=== PATIENT | female | born 1955 | race Caucasian/White ===

== ENCOUNTER 2022-04-14 16:53 | Day surgery (SDC) | payer BC, SELFPAY ==
[2022-04-14 17:10] VITALS: BP 176/89; PULSE 99; RESP 16; TEMP 36.3; O2SAT 98
[2022-04-14 19:12] VITALS: BP 187/87; PULSE 97; RESP 18; O2SAT 99
[2022-04-14 19:44] VITALS: BP 159/83; PULSE 92; RESP 16; TEMP 36.7; O2SAT 93
--- NOTE | 2022-04-14 19:58 | CRLHL7_ITS ---
For Patients: As a result of the Century Cures Act, medical imaging exams and procedure reports are released immediately into your electronic medical record. You may view this report before your referring provider. If you have questions, please contact your health care provider. INDICATION: Right lower quadrant pain. TECHNIQUE: CT abdomen and pelvis acquired with 98 cc Isovue 370 IV contrast. COMPARISON: None. FINDINGS: Lower chest: Coronary artery and thoracic aorta atherosclerotic calcification. Liver: Unremarkable. Normal in size and attenuation. No suspicious masses. Gallbladder and bile ducts: Unremarkable. No stones or inflammation. No biliary dilatation. Pancreas: Fatty atrophy. No mass or inflammation. Spleen: Unremarkable. Normal in size. No masses. Adrenal glands: Unremarkable. No nodules. Kidneys: Two sub cm fat attenuating lesions in the superior pole of the left kidney may represent small angiomyolipomas. No suspicious masses, stones, or hydronephrosis. GI tract: Fluid-filled hyperemic appendix measuring up to 11 mm with mild periappendiceal inflammatory changes. No evidence for perforation or abscess formation. The remainder of the small and large bowel is unremarkable. Vasculature: Normal caliber abdominal aorta with mild to moderate atherosclerotic calcification. Mesenteric arteries are patent. Lymph nodes: No lymphadenopathy. Peritoneum/Abdominal Wall: Unremarkable. No sign of mass or infiltration. No free air or significant free fluid. Pelvis: Unremarkable. Bones: Unremarkable for age. IMPRESSION: Acute uncomplicated appendicitis in the right lower quadrant. Please note that all CT scans at this facility use dose modulation, iterative reconstruction, and/or weight-based dosing when appropriate to reduce radiation dose to as low as reasonably achievable. Dictated by Jeramy Luu MD @ 04/14/2022 9:49:04 PM (Electronically Signed)
--- NOTE | 2022-04-14 19:59 | ED.ABDPAIN ---
HPI - Abdominal Pain General Chief Complaint: Abdominal Pain Stated Complaint: R Side Abdominal Pain Time Seen by Provider: 04/14/22 19:21 History of Present Illness HPI narrative: This 67-year-old female comes in reporting abdominal pain that began this morning. She states that it is a constant pain that is been worsening through the day. Pain is distinctly worse with any kind of movement. She denies having any nausea, vomiting, fever, dysuria, or altered bowel function. Related Data Allergies Allergy/AdvReac Type Severity Reaction Status Date / Time bee venom protein (honey bee) Allergy Severe Anaphylaxis Verified 04/14/22 17:15 Review of Systems Status of ROS Reports: 10 or more systems reviewed and unremarkable except as noted in History and below Narrative Constitutional: No fevers, no weight gain or loss. Eyes: No discharge. No vision changes. HENT: No congestion, no sore throat, no ear pain. Cardiovascular: No chest pain, no palpitations. Respiratory: No shortness of breath, no wheezes, no cough. Gastrointestinal: No vomiting, no diarrhea. Right lower quadrant abdominal pain. Genitourinary: No dysuria, no hematuria. Musculoskeletal: Normal range of motion. Skin: No rashes, no pruritis. Neurological: No dizziness, weakness, sensory change, speech change. Endo/Heme/Allergies: No bruising or bleeding. No polydipsia. Pysch: no suicidality, no anxiety, no insomnia. All other systems reviewed and are negative. [facility] Social History Smoking Status: Never smoker Do you use any of these nicotine containing products: None Second hand tobacco smoke exposure: No How often do you have a drink containing alcohol: monthly or less AUDIT-C Alcohol total score: 1 Non-prescribed substance use: denies use service: No Exam Narrative: Exam Narrative: Constitutional: Well-developed, well-nourished, no acute distress. HEENT: Normocephalic, atraumatic. Neck: Normal range of motion. Nontender. Supple. Heart: Regular. No murmurs. Normal rate. Intact distal pulses. Lungs: Clear to auscultation. No chest discomfort. No wheezes, rhonchi, or rales. Abdomen: Normal bowel sounds. Tenderness in the right lower quadrant at McBurney's point. Rebound tenderness is present. Rovsing's sign is negative. Genitalia: Deferred. Back: No midline tenderness. Normal range of motion. Extremities: Normal range of motion. No injury. Skin: Intact. No rash. Warm. No erythema or pallor. Neurologic: No altered sensation. No weakness. Alert and oriented. Psychiatric: No suicidality. No anxiety or depression. No insomnia. Nursing notes and vitals signs are reviewed. Const: Vital Signs, click to edit/add: Vital Signs - 24 hr 04/14/22 17:10 04/14/22 19:12 04/14/22 19:44 Temperature 97.4 F L 98.1 F Pulse Rate [Pulse Oximeter] 99 97 92 Respiratory Rate 16 18 16 Blood Pressure [Ri ght Upper Arm] 176/89 H 187/87 H 159/83 H Pulse Oximetry 98 99 93 Oxygen Delivery Me thod Room Air Room Air Room Air 04/14/22 20:47 04/14/22 21:41 Temperature 97.6 F Pulse Rate [Pulse Oximeter] 82 Respiratory Rate 16 Blood Pressure [Ri ght Upper Arm] 152/68 H 178/67 H Pulse Oximetry 99 92 Oxygen Delivery Me thod Room Air Room Air Course Vital Signs Vital signs: Initial Vital Signs Temperature 97.4 F L 04/14/22 17:10 Temperature Source Temporal Artery Scan 04/14/22 17:10 Pulse Rate 99 04/14/22 17:10 Pulse Rhythm 04/14/22 17:10 Respiratory Rate 16 04/14/22 17:10 Blood Pressure 176/89 H 04/14/22 17:10 Blood Pressure Mean 118 04/14/22 17:10 Blood Pressure Position Sitting 04/14/22 17:10 Pulse Oximetry 98 04/14/22 17:10 Oxygen Delivery Method 04/14/22 17:10 Vital Signs Temperature 97.4 F L 04/14/22 17:10 Pulse Rate 99 04/14/22 17:10 Respiratory Rate 16 04/14/22 17:10 Blood Pressure 176/89 H 04/14/22 17:10 Pulse Oximetry 98 04/14/22 17:10 Oxygen Delivery Method 04/14/22 17:10 Temperature 97.6 F 04/14/22 20:47 Pulse Rate 82 04/14/22 21:41 Respiratory Rate 16 04/14/22 20:47 Blood Pressure 178/67 H 04/14/22 21:41 Pulse Oximetry 92 04/14/22 21:41 Oxygen Delivery Method 04/14/22 21:41 MDM - Abdominal Pain MDM Narrative Medical decision making narrative: This patient comes in with right lower quadrant pain that is suspicious for acute appendicitis. CT imaging of the abdomen and pelvis does confirm an uncomplicated acute appendicitis. Her white count returns at 14,400. An IV was established where she did receive Dilaudid 0.5 mg and Zofran 4 mg. After the diagnosis is confirmed she also received Zosyn 3.375 g. I spoke with the surgeon on-call, Dr. Bentley, who will arrange for surgery in the morning. Dr. Hawk is the accepting physician in the hospital. Lab Data Labs: Lab Results 04/14/22 04/14/22 Range/Units 20:15 20:15 WBC 14.40 H (4.50-11.00) K/uL RBC 5.06 (4.00-5.20) m/uL Hgb 13.7 (12.0-16.0) gm/dL Hct 41.6 (33.0-51.0) % MCV 82 (80-100) fL MCH 27 (26-34) pg MCHC 33 (32-36) gm/dL RDW Coeff of Sandee 13.1 (11.5-15.5) % Plt Count 268 (140-440) K/uL Neut % (Auto) 62.6 (42.0-72.0) % Lymph % (Auto) 29.7 (20-44) % [place] % (Auto) 5.3 (0.0-11.0) % Eos % (Auto) 1.9 (0.0-7.0) % Baso % (Auto) 0.4 (0.0-3.0) % Neut # (Auto) 9.00 H (1.7-7.0) K/uL Lymph # (Auto) 4.30 H (0.90-2.90) K/uL [place] # (Auto) 0.80 (0.00-0.90) K/UL Eos # (Auto) 0.30 (0.00-0.50) K/uL Baso # (Auto) 0.10 (0.00-0.30) K/uL Sodium 140 (135-149) mmol/L Potassium 3.6 (3.6-5.1) mmol/L Chloride 103 (96-114) mmol/L Carbon Dioxide 29 (20-32) mmol/L BUN 13 (7-30) mg/dL Creatinine 0.6 (0.5-1.5) mg/dL Estimated GFR 100 ml/min Glucose 118 H (60-115) mg/dL Calcium 10.1 (8.4-10.6) mg/dL Imaging Data CT scan - abdomen: Radiologist's impression: Acute uncomplicated appendicitis in the right lower quadrant. ECG Data Attestation: I personally reviewed and interpreted this ECG as follows: Discharge Plan Discharge Clinical Impression: Acute appendicitis Patient Disposition: Admitted As Inpatient Condition: Unchanged Follow Up/Referrals: Maddy Vaughn MD [Primary Care Provider] -
[2022-04-14 20:25] LABS: Basophils Percent Auto 0.4 % (0.0-3.0); Eosinophils Percent Auto 1.9 % (0.0-7.0); Hematocrit 41.6 % (33.0-51.0); Hemoglobin* 13.7 gm/dL (12.0-16.0); Immature Granulocytes Pct Auto 0.1 %; Lymphocytes Percent Auto 29.7 % (20-44); Mean Corpuscular HGB Conc 33 gm/dL (32-36); Mean Corpuscular Hemoglobin 27 pg (26-34); Mean Corpuscular Volume 82 fL (80-100); Monocytes Percent Auto 5.3 % (0.0-11.0); Neutrophils Percent Auto 62.6 % (42.0-72.0); Platelet Count* 268 K/uL (140-440); RDW Coefficient of Variation % 13.1 % (11.5-15.5); Red Blood Count 5.06 m/uL (4.00-5.20); Slide Review Reflex No
[2022-04-14] MEDS: ONDANSETRON 2 MG/ML inj 4 MG IVP (20:31)
[2022-04-14] MEDS: HYDROmorphone 0.5 mg/0.5 ml inj IVP (20:31)
[2022-04-14 20:39] LABS: Chloride* 103 mmol/L (96-114); Sodium* 140 mmol/L (135-149)
[2022-04-14 20:40] LABS: Potassium* 3.6 mmol/L (3.6-5.1)
[2022-04-14 20:42] LABS: Creatinine* 0.6 mg/dL (0.5-1.5); Estimated Glomerular Filt Rate 100 ml/min
[2022-04-14 20:43] LABS: Blood Urea Nitrogen* 13 mg/dL (7-30); Calcium* 10.1 mg/dL (8.4-10.6); Carbon Dioxide* 29 mmol/L (20-32); Glucose* 118 mg/dL (60-115)
[2022-04-14 20:47] VITALS: BP 152/68; RESP 16; TEMP 36.4; O2SAT 99
--- NOTE | 2022-04-14 21:33 | ED.NURSE ---
pt returned from ct, pain a little better 07/05. at bedside.
[2022-04-14 21:41] VITALS: BP 178/67; PULSE 82; O2SAT 92
[2022-04-14] MEDS: PIPERACILLIN/TAZOBACTAM 3.375 GM in 0.9 % SODIUM CHLORIDE Mini-bag 100 ML IVPB (22:26)
--- NOTE | 2022-04-14 23:04 | PM.IMHP1 ---
Hospitalist- H&P: HPI History of Present Illness Date Seen: 04/14/22 Chief complaint: R Side Abdominal Pain Narrative: ADMISSION HISTORY AND PHYSICAL - HOSPITALIST Chief Complaint: Abdominal pain HPI: 67-year-old with a history type 2 diabetes, hypertension, hyperlipidemia presents with abdominal pain. Woke up this morning this pain it has been worsening throughout the day. Exacerbated by any movement. Brought in by family earlier this evening. CT pretty clearly showed acute uncomplicated appendicitis. She has a mild leukocytosis. Her blood sugars only 118. ER COURSE: CT abdomen pelvis showed acute appy Given antiemetics, pain control, Zosyn started at 10:30 p.m. 04/14/2022 General surgery consulted, OR tomorrow a.m. CODE STATUS: Full code EMERGENCY CONTACT PLAN: Alf, , [phone] I've updated the PFSH, medications and allergies in the [facility] tabs. INVESTIGATIONS: LABS/MICRO/ECG/IMAGING Afebrile Hypertensive since arrival 187/87, 178/67 Pulse rate 82 Respiratory rate 16 Pulse ox 99% on room air Weight 88.5 kilos CBC reflects a leukocytosis 14.4, 62.6% neutrophils Hemoglobin 13.7 Platelet count 260 Glucose 118 otherwise normal electrolytes and renal function Respiratory panel pending CT A/P Acute uncomplicated appendicitis in the right lower quadrant. EKG, normal sinus rhythm REVIEW OF SYSTEMS: 12-point ROS completed with patient and negative unless otherwise stated in HPI or below. PHYSICAL EXAM: CODE STATUS: FULL CONSTITUTIONAL: Conversive, good historian. A/O. Knows setting and context. VITAL SIGNS: see record. HEENT: Normocephalic, atraumatic. PERRL, EOMI, conjunctivae pink, no scleral icterus. Ears and nose externally normal. Pharynx normal. NECK: No JVD. No carotid bruit, no thyromegaly, no adenopathy. CHEST: Clear to auscultation bilaterally HEART: S1 and S2 normal. No harsh murmurs. Edema trace ANDOMEN: obese. tender as expected in the RLQ; rebound evident. MUSCULOSKELETAL: No gross joint deformity or swelling. NEURO: Cranial nerves intact. Grossly intact. No asymmetric findings. SKIN: No rashes, petechiae, concerning changes PSYCHIATRIC: Euthymic. 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 nonsmoker, nondrinker. Smoking Status: Never smoker Do you use any of these nicotine containing products: None Second hand tobacco smoke exposure: No How often do you have a drink containing alcohol: monthly or less AUDIT-C Alcohol total score: 1 Non-prescribed substance use: denies use service: No Meds Home Medications and Allergies Home Medications Medication Instructions Recorded Confirmed Type epinephrine 0.3 mg/0.3 mL 0.3 ml subcut ONCE PRN 04/14/22 04/14/22 History injection, auto-injector glyburide 5 mg-metformin 500 mg 1 tab PO DAILY 04/14/22 04/14/22 History tablet lisinopril 10 mg tablet 15 mg PO DAILY 04/14/22 04/14/22 History pioglitazone 30 mg tablet 30 mg PO DAILY 04/14/22 04/14/22 History simvastatin 10 mg tablet 10 mg PO DAILY 04/14/22 04/14/22 History Allergies Allergy/AdvReac Type Severity Reaction Status Date / Time bee venom protein (honey bee) Allergy Severe Anaphylaxis Verified 04/14/22 17:15 Exam Const: Vital Signs, click to edit/add: Vital Signs - 24 hr 04/14/22 17:10 04/14/22 19:12 04/14/22 19:44 Temperature 97.4 F L 98.1 F Pulse Rate [Pulse Oximeter] 99 97 92 Respiratory Rate 16 18 16 Blood Pressure [Ri ght Upper Arm] 176/89 H 187/87 H 159/83 H Pulse Oximetry 98 99 93 Oxygen Delivery Me thod Room Air Room Air Room Air 04/14/22 20:47 04/14/22 21:41 Temperature 97.6 F Pulse Rate [Pulse Oximeter] 82 Respiratory Rate 16 Blood Pressure [Ri ght Upper Arm] 152/68 H 178/67 H Pulse Oximetry 99 92 Oxygen Delivery Me thod Room Air Room Air Hospitalist - H&P: Result Labs Labs: Short CBC 04/14/22 Range/Units 20:15 WBC 14.40 H (4.50-11.00) K/uL Hgb 13.7 (12.0-16.0) gm/dL Hct 41.6 (33.0-51.0) % Plt Count 268 (140-440) K/uL BMP 04/14/22 20:15 Sodium 140 Potassium 3.6 Chloride 103 Carbon Dioxide 29 BUN 13 Creatinine 0.6 Glucose 118 H Calcium 10.1 Assessment and Plan Assessment and plan (1) Acute appendicitis: Problem comment: -NPO, fluids, pain control, antiemetic -bring blood pressure down to less than 140/90 -medical clearance completed. Patient may proceed to the OR in the a.m.. Status: Acute (2) Type 2 diabetes mellitus: Problem comment: triple oral thearpy (glyburide/metformin/actos); no insulin -hold these for now, cover with sliding scale insulin last A1C 7.9, high 9.2 in 2021 -A1c pending Status: Acute (3) Morbid obesity: Problem comment: 88kg Status: Acute (4) Hypertension: Status: Acute
[2022-04-14 23:16] LABS: PCR FLU A Negative PCR FLU A (Negative); PCR FLU B Negative PCR FLU B (Negative); PCR RSV Negative PCR RSV (Negative)
[2022-04-14 23:39] LABS: SARS PCR* Negative SARS-CoV-2 (Negative)
[2022-04-14 23:54] LABS: Alanine Aminotransferase* 44 U/L (4-35); Albumin* 4.7 g/dL (3.3-5.0); Alkaline Phosphatase* 76 U/L (40-150); Aspartate Amino Transferase* 88 U/L (12-35); Bilirubin Direct* 0.2 mg/dL (0.0-0.5); Bilirubin Total* 0.7 mg/dL (0.1-1.5); Lipase* 99 U/L (23-300); Total Protein* 8.1 g/dL (6.0-8.3); Troponin I* < 0.01 ng/mL (0.01-0.04)
[2022-04-14 23:59] VITALS: PULSE 86; RESP 16; TEMP 37
[2022-04-15] VITALS (35 sets, daily range): BP systolic 107–154; BP diastolic 52–85; PULSE 67–96; RESP 14–16; TEMP 36–37.2; O2SAT 87–100
[2022-04-15] MEDS: METOPROLOL TARTRATE 50 MG TABLET PO (00:51)
[2022-04-15] MEDS: LACTATED RINGERS 1000 ML 1,000 ML 125 ML IV (00:52)
[2022-04-15] MEDS: PANTOPRAZOLE SODIUM 40 MG INJ IVP (00:52)
[2022-04-15] MEDS: PIPERACILLIN/TAZOBACTAM 3.375 GM in 0.9 % SODIUM CHLORIDE Mini-bag 100 ML IVPB (04:51)
--- NOTE | 2022-04-15 05:38 | PC.NURSE ---
Pt is alert and oriented x3, pleasant and cooperative. Afebrile. Pt reports 5/10 pain, PRN medications were discussed but pt refused and stated that she is tolerating. Pt denies?chest pain, SOB, and N/V. Pt is up Ind. Pt is NPO since 0000.?
[2022-04-15 06:47] LABS: Hematocrit 37.7 % (33.0-51.0); Hemoglobin* 12.4 gm/dL (12.0-16.0); Mean Corpuscular HGB Conc 33 gm/dL (32-36); Mean Corpuscular Hemoglobin 27 pg (26-34); Mean Corpuscular Volume 83 fL (80-100); Platelet Count* 258 K/uL (140-440); Red Blood Count 4.53 m/uL (4.00-5.20)
[2022-04-15 06:58] LABS: HCO3 VBG 29 mmol/L (21-28); PCO2 VBG 44 mmHG (40-50); PO2 VBG 50.5 mmHG (25-47); pH VBG 7.421 (7.32-7.43)
[2022-04-15 06:59] LABS: Slide Review Reflex No
[2022-04-15 07:18] LABS: INR 1.02 (0.91-1.10)
[2022-04-15 07:23] LABS: Chloride* 105 mmol/L (96-114); Potassium* 4.1 mmol/L (3.6-5.1); Sodium* 138 mmol/L (135-149)
--- NOTE | 2022-04-15 07:24 | P.GSCN_ITS ---
History of Present Illness Consult details Date Seen: 04/15/22 Consult date: 04/15/22 Narrative: The patient is a 67-year-old female who presents to the ED with right lower quadrant pain which began yesterday morning at 5:00 a.m.. It got progressively worse and therefore she came in to be seen. With this she has not had nausea vomiting or fevers. No change in bowel habits. No urinary symptoms. She has never had anything like this previously. She has other illness such as no chest pain or shortness of breath. 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 nonsmoker, nondrinker. Smoking Status: Never smoker Do you use any of these nicotine containing products: None Second hand tobacco smoke exposure: No How often do you have a drink containing alcohol: monthly or less Alcohol type: wine AUDIT-C Alcohol total score: 1 Non-prescribed substance use: denies use Caffeine: Yes (coffee) service: No Meds Home Medications and Allergies Home Medications Medication Instructions Recorded Confirmed Type epinephrine 0.3 mg/0.3 mL 0.3 ml subcut ONCE PRN 04/14/22 04/14/22 History injection, auto-injector glyburide 5 mg-metformin 500 mg 1 tab PO DAILY 04/14/22 04/14/22 History tablet lisinopril 10 mg tablet 15 mg PO DAILY 04/14/22 04/14/22 History pioglitazone 30 mg tablet 30 mg PO DAILY 04/14/22 04/14/22 History simvastatin 10 mg tablet 10 mg PO DAILY 04/14/22 04/14/22 History Allergies Allergy/AdvReac Type Severity Reaction Status Date / Time bee venom protein (honey bee) Allergy Severe Anaphylaxis Verified 04/14/22 17:15 Exam Narrative: Exam Narrative: General appearance: Alert, cooperative, and in no distress Eyes: PERRLA, eye lids clear, and sclera white HENT Head: Normocephalic Ears: External ears normal Pulmonary: Breathing nonlabored on room air Cardiovascular Heart: Regular rate Extremities: warm and well perfused Gastrointestinal Abdominal: Obese. Tender on the right mid and lower abdomen. No scars visible. Musculoskeletal: Extremities: Upper: Both upper extremities have normal joint range of motion and intact strength. Lower: Both lower extremities have normal joint range of motion and intact strength. Skin: Normal skin color, texture, and turgor. No rashes or lesions. Neurologic: No focal deficits Psychiatric: Alert, oriented, cooperative, normal affect. Const: Vital Signs, click to edit/add: Vital Signs - 24 hr 04/14/22 17:10 04/14/22 19:12 04/14/22 19:44 Temperature 97.4 F L 98.1 F Pulse Rate [Pulse Oximeter] 99 97 92 Pulse Rate [Right Pulse Oximeter] Respiratory Rate 16 18 16 Blood Pressure [Ri ght Arm] Blood Pressure [Ri ght Upper Arm] 176/89 H 187/87 H 159/83 H Pulse Oximetry 98 99 93 Oxygen Delivery Me thod Room Air Room Air Room Air 04/14/22 20:47 04/14/22 21:41 04/14/22 23:59 Temperature 97.6 F 98.6 F Pulse Rate [Pulse Oximeter] 82 Pulse Rate [Right Pulse Oximeter] 86 Respiratory Rate 16 16 Blood Pressure [Ri ght Arm] Blood Pressure [Ri ght Upper Arm] 152/68 H 178/67 H Pulse Oximetry 99 92 Oxygen Delivery Ny thod Room Air Room Air 04/15/22 01:02 04/15/22 01:02 04/15/22 04:50 Temperature 98.6 F 98.9 F Pulse Rate [Pulse Oximeter] Pulse Rate [Right Pulse Oximeter] 86 68 Respiratory Rate 16 14 Blood Pressure [Ri ght Arm] 149/82 H 128/62 Blood Pressure [Ri ght Upper Arm] Pulse Oximetry 96 96 98 Oxygen Delivery Me thod Room Air Room Air Room Air Results Labs Labs: Abnormal lab results 04/14/22 04/14/22 04/15/22 Range/Units 20:15 20:15 06:25 WBC 14.40 H (4.50-11.00) K/uL Neut # (Auto) 9.00 H (1.7-7.0) K/uL Lymph # (Auto) 4.30 H (0.90-2.90) K/uL VBG pO2 50.5 H (25-47) mmHG VBG HCO3 29 H (21-28) mmol/L Glucose 118 H (60-115) mg/dL AST 88 H (12-35) U/L ALT 44 H (4-35) U/L Troponin I < 0.01 L (0.01-0.04) ng/mL Diabetes panel 04/14/22 Range/Units 20:15 Sodium 140 (135-149) mmol/L Potassium 3.6 (3.6-5.1) mmol/L Chloride 103 (96-114) mmol/L Carbon Dioxide 29 (20-32) mmol/L BUN 13 (7-30) mg/dL Creatinine 0.6 (0.5-1.5) mg/dL Glucose 118 H (60-115) mg/dL Calcium 10.1 (8.4-10.6) mg/dL AST 88 H (12-35) U/L ALT 44 H (4-35) U/L Alkaline Phosphatase 76 (40-150) U/L Total Protein 8.1 (6.0-8.3) g/dL Albumin 4.7 (3.3-5.0) g/dL Calcium panel 04/14/22 Range/Units 20:15 Calcium 10.1 (8.4-10.6) mg/dL Albumin 4.7 (3.3-5.0) g/dL Pituitary panel 04/14/22 Range/Units 20:15 Sodium 140 (135-149) mmol/L Potassium 3.6 (3.6-5.1) mmol/L Chloride 103 (96-114) mmol/L Carbon Dioxide 29 (20-32) mmol/L BUN 13 (7-30) mg/dL Creatinine 0.6 (0.5-1.5) mg/dL Glucose 118 H (60-115) mg/dL Calcium 10.1 (8.4-10.6) mg/dL Adrenal panel 04/14/22 Range/Units 20:15 Sodium 140 (135-149) mmol/L Potassium 3.6 (3.6-5.1) mmol/L Chloride 103 (96-114) mmol/L Carbon Dioxide 29 (20-32) mmol/L BUN 13 (7-30) mg/dL Creatinine 0.6 (0.5-1.5) mg/dL Glucose 118 H (60-115) mg/dL Calcium 10.1 (8.4-10.6) mg/dL Total Bilirubin 0.7 (0.1-1.5) mg/dL AST 88 H (12-35) U/L ALT 44 H (4-35) U/L Alkaline Phosphatase 76 (40-150) U/L Total Protein 8.1 (6.0-8.3) g/dL Albumin 4.7 (3.3-5.0) g/dL All other labs normal. Imaging Additional studies: INDICATION: Right lower quadrant pain. TECHNIQUE: CT abdomen and pelvis acquired with 98 cc Isovue 370 IV contrast. COMPARISON: None. FINDINGS: Lower chest: Coronary artery and thoracic aorta atherosclerotic calcification. Liver: Unremarkable. Normal in size and attenuation. No suspicious masses. Gallbladder and bile ducts: Unremarkable. No stones or inflammation. No biliary dilatation. Pancreas: Fatty atrophy. No mass or inflammation. Spleen: Unremarkable. Normal in size. No masses. Adrenal glands: Unremarkable. No nodules. Kidneys: Two sub cm fat attenuating lesions in the superior pole of the left kidney may represent small angiomyolipomas. No suspicious masses, stones, or hydronephrosis. GI tract: Fluid-filled hyperemic appendix measuring up to 11 mm with mild periappendiceal inflammatory changes. No evidence for perforation or abscess formation. The remainder of the small and large bowel is unremarkable. Vasculature: Normal caliber abdominal aorta with mild to moderate atherosclerotic calcification. Mesenteric arteries are patent. Lymph nodes: No lymphadenopathy. Peritoneum/Abdominal Wall: Unremarkable. No sign of mass or infiltration. No free air or significant free fluid. Pelvis: Unremarkable. Bones: Unremarkable for age. IMPRESSION: Acute uncomplicated appendicitis in the right lower quadrant. Please note that all CT scans at this facility use dose modulation, iterative reconstruction, and/or weight-based dosing when appropriate to reduce radiation dose to as low as reasonably achievable. Dictated by Jeramy Luu MD @ 04/14/2022 9:49:04 PM Assessment and Plan Assessment and plan (1) Hypertension: Status: Acute (2) Morbid obesity: Problem comment: 88kg Status: Acute (3) Type 2 diabetes mellitus: Problem comment: triple oral thearpy (glyburide/metformin/actos); no insulin -hold these for now, cover with sliding scale insulin last A1C 7.9, high 9.2 in 202 -A1c pending Status: Acute (4) Acute appendicitis: Problem comment: -NPO, fluids, pain control, antiemetic -bring blood pressure down to less than 140/90 -medical clearance completed. Patient may proceed to the OR in the a.m.. Status: Acute Plan The patient is a 67-year-old female with acute appendicitis. We discussed that appendectomy is the preferred treatment for this. This can most often be done laparoscopically. We discussed risks and benefits of the procedure including but not limited to bleeding, need for conversion to open, risk of injury to other structures, need for possible bowel resection, and abscess formation. The patient understands that the risk of abscess is higher if the appendix is perforated. For that reason, we generally keep patient is in the hospital on IV antibiotics until vital signs and white blood cell count had normalized. We also discussed recovery including 2 weeks of lifting restrictions. She is agreeable to proceed and signed informed consent. We will proceed with surgery emergently this morning.
[2022-04-15 07:26] LABS: Alanine Aminotransferase* 38 U/L (4-35); Alkaline Phosphatase* 58 U/L (40-150); Aspartate Amino Transferase* 31 U/L (12-35); Bilirubin Total* 0.9 mg/dL (0.1-1.5); Blood Urea Nitrogen* 15 mg/dL (7-30); Carbon Dioxide* 26 mmol/L (20-32); Creatinine* 0.8 mg/dL (0.5-1.5); Est. Creatinine Clearance* 80.07; Estimated Glomerular Filt Rate 82 ml/min
[2022-04-15 07:27] LABS: Calcium* 9.1 mg/dL (8.4-10.6); Glucose* 138 mg/dL (60-115)
[2022-04-15 07:29] LABS: C Reactive Protein* 3.3 mg/dL (0.5-1.0)
[2022-04-15 07:43] LABS: Procalcitonin* 0.06 ng/mL (<0.50)
--- NOTE | 2022-04-15 08:14 | PM.GSPRC ---
Operative Note Date of procedure: 04/15/22 Pre-op diagnosis: Acute appendicitis Post-op diagnosis: Same Type of Procedure: Laparoscopic appendectomy Indications: The patient is a 67-year-old female who presented to the emergency department with right lower quadrant pain. Workup revealed acute appendicitis. After discussion of management of this she agreed to proceed with appendectomy. Procedure Description: After discussing the risks and benefits of the procedure, the patient signed informed consent.? The operative site was marked and the patient was brought to the operating room and placed on the operating table in supine position.? Care was taken to pad the patient's pressure points.?? The patient was then intubated by anesthesia.?? The operative site was then prepped and draped in the usual sterile fashion.? A time-out was then performed. Entrance to the abdomen was obtained via a 5 mm optical trocar in the left upper quadrant. The abdomen was insufflated and briefly surveyed for any signs of injury. There were none. A 12 mm port was placed in the left lateral abdomen as well as a 5 mm port in the left lower quadrant. Both were done under direct vision. The patient was then placed in Trendelenburg position with the right side up. The small bowel was gently moved out of the way and the appendix was in view. A small amount of dissection was necessary to free the appendix from the surrounding pelvic attachments. The appendix was inflamed but not perforated. It was grasped and pulled into view. A mesenteric window was created between the base of the appendix and the mesoappendix. An Endo-ROSARIO purple load stapler was then used to transect the appendix at its base. A vascular load stapler was then used to divide the mesoappendix. The staple lines were inspected for bleeding. There was none. The appendix was then removed from the abdomen using an Endo-Catch bag. The specimen was sent to pathology. The 12 mm port site fascia was closed with 0 Vicryl using a Dominic-Reina. The abdomen was desufflated and the remaining ports were removed. The skin was then closed with absorbable subcuticular suture. Sterile dressings were then applied. Instrument sponge and needle counts were correct at the end of the case. The patient was then woken and transported to the PACU in stable condition. ? The patient tolerated the procedure well. Findings: Acute non perforated appendicitis Anesthesia: GETA Surgeon: Chika Bentley MD Estimated blood loss (mL): 5 Specimen: Appendix Condition: stable Disposition: PACU
[2022-04-15] MEDS: BUPIVACAINE 0.25% 30 ML INJECTION (08:15)
--- NOTE | 2022-04-15 08:40 | SUR.PHASEI ---
Patient to recovery in stable condition. Denies pain pain and is warm.
--- NOTE | 2022-04-15 08:42 | PM.EN ---
Chart Event Note Chart Event Note: Patient received 3.375 g of Zosyn overnight with the last dose having been infused at 6:40 a.m.. Patient went for appendectomy and 1 hour later, received a 2nd dose as part of perioperative antibiotics. Reviewed with pharmacy - patient has normal renal function, however will keep overnight and recheck labs in the morning with to ensure no renal impairment for side effects. Patient and updated on this plan
[2022-04-15] MEDS: LACTATED RINGERS 1000 ML 1,000 ML 100 ML IV ×2 (08:47→11:38)
--- NOTE | 2022-04-15 09:03 | W.ANESCHARGE ---
Anesthesia Charges Start Date/Time Anesthesia Start Date: 04/15/22 Anesthesia Start Time: 07:16 Stop Date/Time Anesthesia Stop Date: 04/15/22 Anesthesia Stop Time: 07:26 Summary Emergency: Yes
[2022-04-15 09:09] LABS: Hemoglobin A1C* 8.07 % (0-5.6)
[2022-04-15] MEDS: HYDROCODONE-ACETAMIN 5-325 MG 1 TAB PO ×2 (09:25→19:56)
[2022-04-15] MEDS: hydrOXYzine pamoate 25 MG CAPSULE PO (11:10)
[2022-04-15] MEDS: ONDANSETRON 2 MG/ML inj 4 MG IVP (11:25)
--- NOTE | 2022-04-15 11:41 | SUR.PHASEII ---
AT 1105 PATIENT WAS STILL COMPLAINING OF 6/10 PAIN. hYDROXYZINE 25 MG GIVEN. AT 1125 PATIENT WAS ASKED IF SHE NEEDED TO USE THE COMMODE. PATIENT ATTEMPTED TO SIT BY THE THE SIDE OF THE BED SHE CLAIMED TO FEEL NAUSEOUS AND WAS GIVEN AN EMESIS BAG. NO VOMITING NOTED . PATIENT THEN STATED SHE WAS DIZZY AND WANTED TO LAY BACK DOWN ON HER SIDE. [facility]ER[facility] ALSO APPLIED. BY 1135 PATIENT STATING TO HAVE 4/10 PAIN AND FEELING MUCH BETTER. pATIENT TRANSFERRED BACK TO MED SURG AND REPORT GIVEN TO RN.
--- NOTE | 2022-04-15 12:11 | P.IMPN_ITS ---
Progress Note: A&P Assessment and plan (1) Acute appendicitis: Problem details: -s/p maxine hamilton 04/15; stable after surgery Status: Acute Assessment and Plan: pain control; diet, dvt ppx per surgery (2) Type 2 diabetes mellitus: Problem details: hold oral agents continue sliding scale Status: Acute (3) Hypertension: Status: Acute Assessment and Plan: hold lisinopril (4) Hyperlipidemia: Problem details: on statin Status: Acute (5) Morbid obesity: Problem details: 88kg Status: Acute Subjective Date Seen: 04/15/22 Interval history: patient s/p Maxine hamilton denies cp, sob denies nausea, vomiting eating ice chips Exam Narrative: Exam Narrative: Gen: no acute distress HEENT: NCAT EOMI mmm CV: RRR normal s1 s2 Lungs: CTAB Abd: Soft,nt, nd Neuro: Alert, oriented, CN grossly intact; nonfocal screening?exam Psych: appropriate affect MSK: age appropriate muscle mass Skin; Warm, dry no rash on face Const: Vital Signs, click to edit/add: Vital Signs - 24 hr 04/14/22 17:10 04/14/22 19:12 04/14/22 19:44 Temperature 97.4 F L 98.1 F Pulse Rate Pulse Rate [Pulse Oximeter] 99 97 92 Pulse Rate [Right Pulse Oximeter] Respiratory Rate 16 18 16 Blood Pressure Blood Pressure [Ri ght Arm] Blood Pressure [Ri ght Upper Arm] 176/89 H 187/87 H 159/83 H Pulse Oximetry 98 99 93 Oxygen Delivery Me thod Room Air Room Air Room Air Oxygen Flow Rate 04/14/22 20:47 04/14/22 21:41 04/14/22 23:59 Temperature 97.6 F 98.6 F Pulse Rate Pulse Rate [Pulse Oximeter] 82 Pulse Rate [Right Pulse Oximeter] 86 Respiratory Rate 16 16 Blood Pressure Blood Pressure [Ri ght Arm] Blood Pressure [Ri ght Upper Arm] 152/68 H 178/67 H Pulse Oximetry 99 92 Oxygen Delivery Me thod Room Air Room Air Oxygen Flow Rate 04/15/22 01:02 04/15/22 01:02 04/15/22 04:50 Temperature 98.6 F 98.9 F Pulse Rate Pulse Rate [Pulse Oximeter] Pulse Rate [Right Pulse Oximeter] 86 68 Respiratory Rate 16 14 Blood Pressure Blood Pressure [Ri ght Arm] 149/82 H 128/62 Blood Pressure [Ri ght Upper Arm] Pulse Oximetry 96 96 98 Oxygen Delivery Me thod Room Air Room Air Room Air Oxygen Flow Rate 04/15/22 08:38 04/15/22 08:23 04/15/22 08:24 Temperature 98.4 F Pulse Rate 74 72 Pulse Rate [Pulse Oximeter] Pulse Rate [Right Pulse Oximeter] Respiratory Rate Blood Pressure 139/69 Blood Pressure [Ri ght Arm] Blood Pressure [Ri ght Upper Arm] Pulse Oximetry 92 87 L Oxygen Delivery Me thod Room Air Oxygen Flow Rate 04/15/22 08:26 04/15/22 08:30 04/15/22 08:32 Temperature Pulse Rate 69 69 68 Pulse Rate [Pulse Oximeter] Pulse Rate [Right Pulse Oximeter] Respiratory Rate Blood Pressure 143/70 H 146/63 H Blood Pressure [Ri ght Arm] Blood Pressure [Ri ght Upper Arm] Pulse Oximetry 98 100 100 Oxygen Delivery Me thod Oxygen Flow Rate 04/15/22 08:54 04/15/22 08:33 04/15/22 08:35 Temperature 98.2 F Pulse Rate 68 68 Pulse Rate [Pulse Oximeter] Pulse Rate [Right Pulse Oximeter] Respiratory Rate Blood Pressure Blood Pressure [Ri ght Arm] Blood Pressure [Ri ght Upper Arm] Pulse Oximetry 100 100 Oxygen Delivery Me thod Room Air Oxygen Flow Rate 04/15/22 08:37 04/15/22 08:40 04/15/22 08:41 Temperature Pulse Rate 67 68 68 Pulse Rate [Pulse Oximeter] Pulse Rate [Right Pulse Oximeter] Respiratory Rate Blood Pressure 143/64 H 134/85 Blood Pressure [Ri ght Arm] Blood Pressure [Ri ght Upper Arm] Pulse Oximetry 100 100 100 Oxygen Delivery Me thod Oxygen Flow Rate 04/15/22 08:45 04/15/22 08:47 04/15/22 08:48 Temperature Pulse Rate 67 68 69 Pulse Rate [Pulse Oximeter] Pulse Rate [Right Pulse Oximeter] Respiratory Rate Blood Pressure 138/60 Blood Pressure [Ri ght Arm] Blood Pressure [Ri ght Upper Arm] Pulse Oximetry 100 97 96 Oxygen Delivery Me thod Oxygen Flow Rate 04/15/22 08:50 04/15/22 08:52 04/15/22 08:53 Temperature Pulse Rate 69 69 69 Pulse Rate [Pulse Oximeter] Pulse Rate [Right Pulse Oximeter] Respiratory Rate Blood Pressure 129/58 L Blood Pressure [Ri ght Arm] Blood Pressure [Ri ght Upper Arm] Pulse Oximetry 92 95 98 Oxygen Delivery Me thod Oxygen Flow Rate 04/15/22 08:54 04/15/22 08:56 04/15/22 09:05 Temperature 98.5 F Pulse Rate 68 70 71 Pulse Rate [Pulse Oximeter] Pulse Rate [Right Pulse Oximeter] Respiratory Rate 16 Blood Pressure 134/65 143/70 H Blood Pressure [Ri ght Arm] Blood Pressure [Ri ght Upper Arm] Pulse Oximetry 99 96 98 Oxygen Delivery Me thod Room Air Oxygen Flow Rate 04/15/22 09:43 04/15/22 09:30 04/15/22 10:00 Temperature 97.7 F 97.4 F L Pulse Rate 71 71 73 Pulse Rate [Pulse Oximeter] Pulse Rate [Right Pulse Oximeter] Respiratory Rate 16 16 16 Blood Pressure 147/69 H 152/67 H 152/70 H Blood Pressure [Ri ght Arm] Blood Pressure [Ri ght Upper Arm] Pulse Oximetry 100 93 100 Oxygen Delivery Me thod Nasal Cannula Room Air Nasal Cannula Oxygen Flow Rate 2 2 04/15/22 10:30 04/15/22 11:01 04/15/22 11:30 Temperature 98 F Pulse Rate 79 82 74 Pulse Rate [Pulse Oximeter] Pulse Rate [Right Pulse Oximeter] Respiratory Rate 16 16 16 Blood Pressure 154/70 H 144/66 H 107/52 L Blood Pressure [Ri ght Arm] Blood Pressure [Ri ght Upper Arm] Pulse Oximetry 99 99 97 Oxygen Delivery Me thod Nasal Cannula Nasal Cannula Room Air Oxygen Flow Rate 2 2 Labs Labs: Laboratory Results - last 24 hr 04/14/22 04/14/22 04/14/22 20:15 20:15 22:33 WBC 14.40 H RBC 5.06 Hgb 13.7 Hct 41.6 MCV 82 MCH 27 MCHC 33 RDW Coeff of [place] 13.1 Plt Count 268 Neut % (Auto) 62.6 Lymph % (Auto) 29.7 [place] % (Auto) 5.3 Eos % (Auto) 1.9 Baso % (Auto) 0.4 Neut # (Auto) 9.00 H Lymph # (Auto) 4.30 H [place] # (Auto) 0.80 Eos # (Auto) 0.30 Baso # (Auto) 0.10 INR VBG pH VBG pCO2 VBG pO2 VBG HCO3 Sodium 140 Potassium 3.6 Chloride 103 Carbon Dioxide 29 BUN 13 Creatinine 0.6 Estimated Creat Clear Estimated GFR 100 Glucose 118 H Hemoglobin A1c Calcium 10.1 Total Bilirubin 0.7 Direct Bilirubin 0.2 AST 88 H ALT 44 H Alkaline Phosphatase 76 Troponin I < 0.01 L C-Reactive Protein 1.0 Total Protein 8.1 Albumin 4.7 Lipase 99 Procalcitonin SARS-CoV-2 (PCR) Negative SARS-CoV-2 Influenza Type A (PCR) Negative PCR FLU A Influenza Type B (PCR) Negative PCR FLU B RSV (PCR) Negative PCR RSV 04/15/22 04/15/22 04/15/22 06:25 06:25 06:25 WBC 10.90 RBC 4.53 Hgb 12.4 Hct 37.7 MCV 83 MCH 27 MCHC 33 RDW Coeff of [place] Plt Count 258 Neut % (Auto) Lymph % (Auto) [place] % (Auto) Eos % (Auto) Baso % (Auto) Neut # (Auto) Lymph # (Auto) [place] # (Auto) Eos # (Auto) Baso # (Auto) INR 1.02 VBG pH VBG pCO2 VBG pO2 VBG HCO3 Sodium 138 Potassium 4.1 Chloride 105 Carbon Dioxide 26 BUN 15 Creatinine 0.8 Estimated Creat Clear 80.07 Estimated GFR 82 Glucose 138 H Hemoglobin A1c Calcium 9.1 Total Bilirubin 0.9 Direct Bilirubin AST 31 ALT 38 H Alkaline Phosphatase 58 Troponin I C-Reactive Protein 3.3 H Total Protein 7.0 Albumin 4.0 Lipase Procalcitonin 0.06 SARS-CoV-2 (PCR) Influenza Type A (PCR) Influenza Type B (PCR) RSV (PCR) 04/15/22 04/15/22 06:25 06:25 WBC RBC Hgb Hct MCV MCH MCHC RDW Coeff of [place] Plt Count Neut % (Auto) Lymph % (Auto) [place] % (Auto) Eos % (Auto) Baso % (Auto) Neut # (Auto) Lymph # (Auto) [place] # (Auto) Eos # (Auto) Baso # (Auto) INR VBG pH 7.421 VBG pCO2 44 VBG pO2 50.5 H VBG HCO3 29 H Sodium Potassium Chloride Carbon Dioxide BUN Creatinine Estimated Creat Clear Estimated GFR Glucose Hemoglobin A1c 8.07 H Calcium Total Bilirubin Direct Bilirubin AST ALT Alkaline Phosphatase Troponin I C-Reactive Protein Total Protein Albumin Lipase Procalcitonin SARS-CoV-2 (PCR) Influenza Type A (PCR) Influenza Type B (PCR) RSV (PCR)
--- NOTE | 2022-04-15 13:57 | PC.NURSE ---
Pt. came to med/surg floor after spending 2 plus hours in same day surgery. Pt's pain was a 3 when brought to med/surg and is currently decreasing and now a 2. Pt has gotten out of bed and into chair. Pt has eaten ice chips, and advanced to applesauce and henrietta crackers and tolerated well.
[2022-04-15] MEDS: SIMVASTATIN 10 MG TABLET PO (19:57)
[2022-04-16 03:00] VITALS: BP 175/78; PULSE 86; RESP 16; TEMP 36.8; O2SAT 100
[2022-04-16 06:35] LABS: Basophils Percent Auto 0.1 % (0.0-3.0); Eosinophils Percent Auto 0.5 % (0.0-7.0); Hematocrit 31.3 % (33.0-51.0); Hemoglobin* 10.3 gm/dL (12.0-16.0); Immature Granulocytes Pct Auto 0.2 %; Lymphocytes Percent Auto 27.7 % (20-44); Mean Corpuscular HGB Conc 33 gm/dL (32-36); Mean Corpuscular Hemoglobin 28 pg (26-34); Mean Corpuscular Volume 84 fL (80-100); Monocytes Percent Auto 6.8 % (0.0-11.0); Neutrophils Percent Auto 64.7 % (42.0-72.0); Platelet Count* 246 K/uL (140-440); RDW Coefficient of Variation % 13.4 % (11.5-15.5); Red Blood Count 3.74 m/uL (4.00-5.20); White Blood Count* 14.37 K/uL (4.50-11.00)
[2022-04-16 06:40] LABS: Slide Review Reflex No
[2022-04-16 06:57] LABS: Chloride* 100 mmol/L (96-114)
[2022-04-16 06:58] LABS: Potassium* 3.7 mmol/L (3.6-5.1); Sodium* 133 mmol/L (135-149)
[2022-04-16 07:00] VITALS: BP 156/78; PULSE 92; RESP 16; TEMP 36.6; O2SAT 97
[2022-04-16 07:00] LABS: Creatinine* 0.8 mg/dL (0.5-1.5); Est. Creatinine Clearance* 80.07; Estimated Glomerular Filt Rate 82 ml/min
[2022-04-16 07:01] LABS: Blood Urea Nitrogen* 17 mg/dL (7-30); Calcium* 8.5 mg/dL (8.4-10.6); Carbon Dioxide* 26 mmol/L (20-32); Glucose* 207 mg/dL (60-115)
--- NOTE | 2022-04-16 07:01 | PC.NURSE ---
23-07: Pleasant and cooperative. No c/o pain. 3 Lap sites intact.
--- NOTE | 2022-04-16 09:07 | PM.DS1 ---
DS: Providers Provider Date Seen: 04/16/22 Primary care physician: Maddy Vaughn MD Admitting Clinician: Valerie Hawk MD Consults: Chika Bentley MD Attending Physician on discharge: Chika Bentley MD Date of Discharge: 04/16/22 DS: Diagnosis Discharge Diagnosis (1) Type 2 diabetes mellitus: Status: Acute Problem details: hold oral agents continue sliding scale (2) Acute appendicitis: Status: Acute Problem details: -s/p lap appy 04/15; stable after surgery (3) S/P laparoscopic appendectomy: Status: Acute (4) Morbid obesity: Status: Acute Problem details: 88kg (5) Hypertension: Status: Acute (6) Hyperlipidemia: Status: Acute Problem details: on statin DS: Summary Hospital Course Hospital Course: The patient is a 67-year-old female who is admitted to the hospital on 04/14/2022 with acute appendicitis. She underwent laparoscopic appendectomy for non perforated appendicitis on 04/15/2022. She was observed overnight as she had gotten an additional dose of Zosyn and to ensure there was no untoward effect. On postop day 1 she was feeling well, her pain was improved. She was tolerating a diet, passing gas and urinating without difficulty. Kidney function was within normal limits. She was deemed safe for discharge home. Time Spent with Patient Time attestation: Total time spent providing and/or coordinating discharge services: Exam Narrative: Exam Narrative: General: No acute distress CV: Regular rate and rhythm Respiratory: Breathing nonlabored on room air Abdomen: Protuberant. Incisions without erythema. Some blood staining on the Steri-Strips. Appropriately tender for the postop state. Const: Vital Signs, click to edit/add: Vital Signs - 24 hr General 04/15/22 09:43 04/15/22 09:30 04/15/22 10:00 Temperature 97.7 F 97.4 F L Pulse Rate 71 71 73 Pulse Rate [Right Pulse Oximeter] Respiratory Rate 16 16 16 Blood Pressure 147/69 H 152/67 H 152/70 H Blood Pressure [Le ft Arm] Pulse Oximetry 100 93 100 Oxygen Delivery Me thod Nasal Cannula Room Air Nasal Cannula Oxygen Flow Rate 2 2 04/15/22 10:30 04/15/22 11:01 04/15/22 11:30 Temperature 98 F Pulse Rate 79 82 74 Pulse Rate [Right Pulse Oximeter] Respiratory Rate 16 16 16 Blood Pressure 154/70 H 144/66 H 107/52 L Blood Pressure [Le ft Arm] Pulse Oximetry 99 99 97 Oxygen Delivery Me thod Nasal Cannula Nasal Cannula Room Air Oxygen Flow Rate 2 2 04/15/22 12:00 04/15/22 14:10 04/15/22 13:00 Temperature 96.8 F L 97.3 F L 97.6 F Pulse Rate Pulse Rate [Right Pulse Oximeter] 81 96 88 Respiratory Rate 16 16 16 Blood Pressure Blood Pressure [Le ft Arm] 121/58 L 129/53 L 152/72 H Pulse Oximetry 98 98 92 Oxygen Delivery Me thod Room Air Room Air Room Air Oxygen Flow Rate 04/15/22 15:00 04/15/22 15:00 04/15/22 15:50 Temperature 98.5 F Pulse Rate Pulse Rate [Right Pulse Oximeter] 96 96 Respiratory Rate 16 16 Blood Pressure Blood Pressure [Le ft Arm] 140/62 H Pulse Oximetry 95 95 Oxygen Delivery Me thod Nasal Cannula Oxygen Flow Rate 1 04/15/22 15:00 04/15/22 19:00 04/15/22 23:00 Temperature 98.5 F 98.3 F Pulse Rate Pulse Rate [Right Pulse Oximeter] 96 82 87 Respiratory Rate 16 16 16 Blood Pressure Blood Pressure [Le ft Arm] 140/62 H 136/54 L Pulse Oximetry 95 97 Oxygen Delivery Me thod Nasal Cannula Nasal Cannula Oxygen Flow Rate 1 1 04/15/22 23:00 04/16/22 03:00 04/16/22 07:00 Temperature 98 F 98.2 F 97.9 F Pulse Rate Pulse Rate [Right Pulse Oximeter] 82 86 92 Respiratory Rate 16 16 16 Blood Pressure Blood Pressure [Le ft Arm] 129/65 175/78 H 156/78 H Pulse Oximetry 96 100 97 Oxygen Delivery Me thod Room Air Room Air Room Air Oxygen Flow Rate 04/16/22 07:00 Temperature Pulse Rate Pulse Rate [Right Pulse Oximeter] 92 Respiratory Rate 16 Blood Pressure Blood Pressure [Le ft Arm] Pulse Oximetry Oxygen Delivery Me thod Oxygen Flow Rate DS: Data Data Completed and Pending Labs on day of discharge: Labs from last 24 hours 04/16/22 04/16/22 04/15/22 05:49 05:49 06:25 WBC 14.37 H RBC 3.74 L Hgb 10.3 L Hct 31.3 L MCV 84 MCH 28 MCHC 33 RDW Coeff of [place] 13.4 Plt Count 246 Neut % (Auto) 64.7 Lymph % (Auto) 27.7 [place] % (Auto) 6.8 Eos % (Auto) 0.5 Baso % (Auto) 0.1 Neut # (Auto) 9.30 H Lymph # (Auto) 4.00 H [place] # (Auto) 1.00 H Eos # (Auto) 0.10 Baso # (Auto) 0.00 Sodium 133 L Potassium 3.7 Chloride 100 Carbon Dioxide 26 BUN 17 Creatinine 0.8 Estimated Creat Clear 80.07 Estimated GFR 82 Glucose 207 H Hemoglobin A1c 8.07 H Calcium 8.5 Discharge Plan Discharge Disposition: Home, Self-Care Discharging Surgeon: Chika Bentley Follow-Up Appointment: 2 weeks - [facility] Prescriptions: New hydrocodone-acetaminophen 5-325 mg tablet 1 tab PO Q6H PRN (Reason: Pain) Qty: 15 0RF Rx Instructions: 1 - 2 tab orally as needed No Action epinephrine 0.3 mg/0.3 mL auto-injector 0.3 ml subcut ONCE PRN Label Comments: INJECT 0.3 MG INTRAMUSCULAR ONE TIME IF NEEDED FOR ALLERGIC REACTION. glyburide-metformin 5-500 mg tablet 1 tab PO DAILY lisinopril 10 mg tablet 15 mg PO DAILY Label Comments: TAKE 1 & 1/2 TABLETS (15 MG) BY MOUTH ONCE DAILY. DOSE INCREASE OF 01/18/2022 pioglitazone 30 mg tablet 30 mg PO DAILY Label Comments: TAKE 1 TABLET BY MOUTH EVERY DAY simvastatin 10 mg tablet 10 mg PO DAILY Activity Level: No strenuous activity Activity Detail: No lifting more than 20 lbs x 2 weeks Discharge Diet: Regular Patient Instructions: General Anesthesia (DC), Laparoscopic Appendectomy (DC), Post-Operative Instructions: Appendectomy Additional Instructions: Wound care: Your sutures are under the skin and will dissolve over time. Leave steri strips (white bandages) over incisions until they fall off (or remove after 7 days). OK to shower but avoid bathing, soaking or swimming for 2 weeks. Pat the incisions dry. No need to wash or scrub the area. Apply ice to the area as needed for swelling. It is also OK to use a heating pad if this provides more comfort to you. Pain control: You were prescribed a pain medication. This medication contains acetaminophen (Tylenol). If you are taking your prescribed pain pills 4 times daily, do not take additional acetaminophen. As your pain improves, you can try taking acetaminophen instead of the prescribed pain pill. It is ok to take Ibuprofen or Naproxen (per directions on packaging). This medication helps with inflammation and swelling. Take an [id number] stool softener while you are taking prescribed pain medications to help alleviate constipation. I recommend Senna and/or Colace. Take as directed on package. If you have not had a bowel movement in 3 days, try taking Miralax as directed on the package. All of these are available over the counter. Follow-up Follow up with Dr. Bentley in 2-3 weeks Please call if you are experiencing severe pain, nausea, vomiting, difficulty urinating, fever or have not had bowel movement in 4 days after surgery. Forms: Work/School Release Follow-up: Chika Bentley MD [Staff Physician] - Discharge Orders: Discharge Order (Routine); Ordered 04/16/22 Ordered By: Chika Bentley Consulting provider completed their portion of the discharge: No
[2022-04-16 09:35] VITALS: BP 107/52; PULSE 74; RESP 16; TEMP 36.6
--- NOTE | 2022-04-16 12:15 | PC.NURSE ---
Patients's lap sites are intact with old drainage. Tolerating a regular diet. Rates pain at a 2/10. Ice pack to site. Refused the need for pain meds. Patient has adequate output. Ambulating appropriately. Discharge instructions given to patient and all questions were answered/forms were signed. Pt escorted to front entrance via staff/wheelchair.
--- NOTE | 2022-04-16 13:31 | W.ANESCHARGE ---
Anesthesia Charges Start Date/Time Anesthesia Start Date: 04/15/22 Anesthesia Start Time: 07:16 Stop Date/Time Anesthesia Stop Date: 04/15/22 Anesthesia Stop Time: 07:26 Summary Emergency: Yes
== END 2022-04-16 10:45 | disposition home or self-care (01) ==
LOC: ED 22:22 → MEDSURG 04-15 06:20 → SS 04-15 08:18 → MEDSURG 04-15 08:18
PROVIDERS: Family Medicine; Emergency Provider Emergency Medicine Emergency Medical Services; PCP Family Medicine; Visit Provider Surgery
PROC: 0DTJ4ZZ Resection of Appendix, Percutaneous Endoscopic Approach (ICD-10-PCS; CPT 44970; principal; 2022-04-15 07:00)
DX: K35.80 Unspecified acute appendicitis (principal); E11.9 Type 2 diabetes mellitus without complications; I10 Essential (primary) hypertension; E66.01 Morbid (severe) obesity due to excess calories; E78.5 Hyperlipidemia, unspecified
CPT/HCPCS: 44970; 00840; 36415; 74177; 80048; 80053; 80076; 82803; 82962; 83036; 83690; 84145; 84484; 85025; 85027; 85610; 86140; 87502; 87634; 87635; 88304; 93005; 99140; 99285; A9270; C9113; J0330; J1100; J1170; J2250; J2405; J2543; J2704; J2710; J3010; J3490; J7120; Q9967